=== PATIENT | female | born 1965 | race Caucasian/White ===

== ENCOUNTER 2016-10-12 07:49 | Day surgery (SDC) | payer OTHER ==
[~2016-10-12 07:49] MED LIST: LIDOCAINE HCL 1% MPF SOL ONE; PROPOFOL 500 MG/50 ML EMU IV ONE
[2016-10-12] MEDS ORDERED: KETOROLAC TROMETHAMINE 30 MG/ML SOL ONE (08:20)
[2016-10-12 09:28] VITALS: TEMP 98.5
[2016-10-12 09:47] VITALS: RESP 20; O2SAT 98
[2016-10-12 09:55] VITALS: BP 128/81; PULSE 78
== END 2016-10-12 10:03 | disposition home or self-care (01) ==
LOC: SURG 07:49
PROVIDERS: ATTEND Internal Medicine Gastroenterology
DX: K52.832 Lymphocytic colitis (principal); R10.9 Unspecified abdominal pain; K64.8 Other hemorrhoids
CPT/HCPCS: 45331; J1885; J2001; J2704

== ENCOUNTER 2016-11-29 12:13 | Emergency (ER) | payer OTHER ==
[2016-11-29] MEDS ORDERED: SODIUM CHLORIDE 0.9% FLUSH 10 ML SOL IV PRN (12:14)
[2016-11-29] MEDS ORDERED: NITROGLYCERIN 0.4 MG TAB SL PRN (12:14)
[2016-11-29 12:48] LABS: ALBUMIN 3.9 gm/dl (3.4-5.0); ALT 20 IU/L (14-63); CALCIUM 9.3 mg/dl (8.5-10.1); GLOM FILT RATE 117 mL/min (>60); SODIUM 144 mMol/L (136-145)
[2016-11-29 12:49] LABS: POTASSIUM 2.9 mMol/L (3.5-5.1)
[2016-11-29 12:54] LABS: BASOPHILS % (AUTO) 1 % (0-3); EOSINOPHILS % (AUTO) 0 % (0-9); HEMATOCRIT 43 % (35-47); MEAN CORPUSCULAR HGB CONC 34.4 gm/dl (32.0-36.0); MEAN CORPUSCULAR VOLUME 91 fL (81-99); MONOCYTES % (AUTO) 4.2 % (0-12)
[2016-11-29] MEDS ORDERED: SODIUM CHLORIDE 0.9% 1000ML 1,000 ML IV ONE (12:56)
[2016-11-29] MEDS ORDERED: POTASSIUM CHLORIDE 2 MEQ/ML 20 MEQ, LIDOCAINE HCL 1% MDV 2 ML in SODIUM CHLORIDE 0.9% 2... IV ONE (12:57)
[2016-11-29] MEDS ORDERED: LIDOCAINE HCL 2% (VISCOUS) 20 ML SOL MT ONE (12:58)
[2016-11-29] MEDS ORDERED: ALUMINUM/MAGNESIUM 30 ML SUS PO ONE (12:58)
[2016-11-29 13:05] VITALS: O2SAT 97
[2016-11-29] MEDS ORDERED: POTASSIUM CHLORIDE 10 MEQ TER PO ONE (13:06)
[2016-11-29] MEDS ORDERED: LIDOCAINE HCL 2% (VISCOUS) 20 ML SOL ONE (13:11)
[2016-11-29] MEDS ORDERED: ALUMINUM/MAGNESIUM 30 ML SUS ONE (13:11)
[2016-11-29] MEDS ORDERED: POTASSIUM CHLORIDE 10 MEQ TER ONE ×2 (13:11→14:41)
[2016-11-29] MEDS: POTASSIUM CHLORIDE 10 MEQ TER PO SCH ×3 (13:30→15:21)
[2016-11-29 15:51] VITALS: BP 133/83; PULSE 85; RESP 14
[2016-11-29 15:53] VITALS: TEMP 98.9
== END 2016-11-29 15:00 | disposition home or self-care (01) ==
LOC: ED 12:13
DX: K21.9 Gastro-esophageal reflux disease without esophagitis (principal); R00.0 Tachycardia, unspecified; E87.6 Hypokalemia
CPT/HCPCS: 36415; 71010; 80053; 84484; 85025; 85610; 85730; 93005; 96365; 99284

== ENCOUNTER 2018-03-14 07:18 | Day surgery (SDC) | payer OTHER ==
[2018-03-14 09:32] VITALS: TEMP 98.6
[2018-03-14 09:39] VITALS: O2SAT 98
[2018-03-14 10:10] VITALS: BP 106/72; PULSE 68; RESP 20
== END 2018-03-14 10:27 | disposition home or self-care (01) ==
LOC: SURG 07:18
PROVIDERS: ATTEND Internal Medicine Gastroenterology
DX: R19.7 Diarrhea, unspecified (principal); R10.9 Unspecified abdominal pain; Z83.71 Family history of colonic polyps; R15.9 Full incontinence of feces; K64.8 Other hemorrhoids; K63.5 Polyp of colon; D12.8 Benign neoplasm of rectum
CPT/HCPCS: J2704

== ENCOUNTER 2018-05-16 07:00 | Day surgery (SDC) | payer OTHER ==
[2018-05-16] MEDS ORDERED: LIDOCAINE HCL 1% MPF 30 SOL ONE (07:54)
[2018-05-16] MEDS ORDERED: PROPOFOL 500 MG/50 ML EMU IV ONE (07:55)
[2018-05-16 08:54] VITALS: O2SAT 98
[2018-05-16 09:10] VITALS: BP 117/78; PULSE 69; RESP 18
[2018-05-16 09:12] VITALS: TEMP 97.2
== END 2018-05-16 09:35 | disposition home or self-care (01) | DRG 392 ==
LOC: SURG 07:00
PROVIDERS: ATTEND Internal Medicine Gastroenterology
DX: R13.10 Dysphagia, unspecified (principal); K21.9 Gastro-esophageal reflux disease without esophagitis; K22.4 Dyskinesia of esophagus; E11.9 Type 2 diabetes mellitus without complications
CPT/HCPCS: 82962; J2001; J2704